=== PATIENT | female | born 1965 | race Caucasian/White ===

== ENCOUNTER 2017-09-04 19:43 | Emergency (ER) | payer OTHER ==
--- NOTE | 2017-09-04 19:47 | PDOC ---
History of Present Illness - General History Source: Patient Exam Limitations: No Limitations - History of Present Illness Initial Comments: 09/04/17 20:57 The patient is a 52 year old female with history of hypertension, hyperlipidemia , anxiety, who presents to the ED complaining of an animal bite this evening prior to arrival. She states she got out of her car in front of her home when she felt a bite to her left lower extremity. She reports she saw a large- coyote like creature that was not provoked and was aggressive. She denies any other injury. <Louise Eng - Last Filed: 09/04/17 20:57> <Sheree Sky - Last Filed: 09/05/17 04:10> - General Chief Complaint: Bite Stated Complaint: COYOTE BITE Time Seen by Provider: 09/04/17 19:45 Past History <Louise Eng - Last Filed: 09/04/17 20:57> <Sheree Sky - Last Filed: 09/05/17 04:10> - Past Medical History Allergies/Adverse Reactions: Allergies Allergy/AdvReac Type Severity Reaction Status Date / Time No Known Allergies Allergy Verified 09/04/17 19:54 Home Medications: Ambulatory Orders Amox-Tr/K Cl [Augmentin - 875Mg Tablet] 1 tab PO BID #10 tablet 09/04/17 Atorvastatin Ca [Lipitor] 40 mg PO HS 09/04/17 Clonazepam [Klonopin] 1 mg PO PRN PRN 09/04/17 Lamotrigine [LaMICtal -] 300 mg PO ONCE 09/04/17 Metformin HCl [Metformin HCl ER] 1,000 mg PO HS 09/04/17 Risperidone [Risperdal] 1 mg PO DAILY 09/04/17 Triamterene/Hydrochlorothiazid [Triamterene-Hctz 37.5-25 mg Tb] 37.5 mg PO DAILY 09/04/17 Venlafaxine HCl ER [Effexor Xr -] 37.5 mg PO DAILY 09/04/17 Venlafaxine HCl ER [Effexor Xr -] 150 mg PO DAILY 09/04/17 Review of Systems - Review of Systems Able to Perform ROS?: Yes Comments:: 09/04/17 21:00 ROS is as per HPI and otherwise negative. All Other Systems: Reviewed and Negative <Louise Eng - Last Filed: 09/04/17 20:57> *Physical Exam - Vital Signs Last Vital Signs Temp Pulse Resp BP Pulse Ox 98.5 F 74 20 169/93 100 09/04/17 19:46 09/04/17 19:46 09/04/17 19:46 09/04/17 19:46 09/04/17 19:46 - Physical Exam Comments: 09/04/17 20:57 GENERAL: Awake, alert, and fully oriented, in no acute distress HEAD: No signs of trauma EYES: PERRLA, EOMI, sclera anicteric, conjunctiva clear ENT: Auricles normal inspection, hearing grossly normal, nares patent, oropharynx clear without exudates. Moist mucosa NECK: Normal ROM, supple, no lymphadenopathy, JVD, or masses LUNGS: Breath sounds equal, clear to auscultation bilaterally. No wheezes, and no crackles HEART: Regular rate and rhythm, normal S1 and S2, no murmurs, rubs or gallops ABDOMEN: Soft, nontender, normoactive bowel sounds. No guarding, no rebound. No masses EXTREMITIES: Normal range of motion, no edema. No clubbing or cyanosis. No cords, erythema, or tenderness NEUROLOGICAL: Cranial nerves II through XII grossly intact. Normal speech, normal gait SKIN: 4 cm v shaped superficial wound, not bleeding, of proximal lateral left lower extremity with moderate surrounding edema and ecchymosis with mild tenderness. Warm, dry. No other lesions noted. <Louise Eng - Last Filed: 09/04/17 20:57> Progress Note - Progress Note Progress Note: Documentation has been prepared under my direction and personally reviewed by me in its entirety. I attest that this documented accurately reflects all work, treatment, procedures and medical decision making performed by me. <Sheree Sky - Last Filed: 09/05/17 04:10> Medical Decision Making - Medical Decision Making As noted above, this 52-year-old female with history of diabetes presents with left thigh bite after unprovoked attack by presumed coyote. Patient was removing water bottles out of her automobile trunk when animal suddenly appeared and bit through her left pant leg. She describes the animal as large coyote (patient sees smaller coyotes in her development). Patient swung at the animal but it continued to attempt to re-attack her. She was able to escape into her car without further injury and drove here. Exam as noted: Superficial skin break of the anterior proximal left thigh in the shape of a bite wound (rough "V" shaped). Case discussed with Department of Health and information forms faxed to them. Because of the nature of this unprovoked attack by an animal that was likely rabid, rabies prophylaxis was administered. The wound was cleansed with Hibiclens/ethanol solution. 12.4 mL of HRIG was infiltrated into the wound. Bacitracin and sterile dressing applied to wound. Boostrix and rabies immunization was administered by nursing staff into right and left deltoid muscles. Augmentin 875/125 twice a day prescribed for 5 days. First dose given here in the emergency room. Patient will be contacted by [facility] tomorrow and plan for remainder of the rabies immunization schedule will be confirmed. Meanwhile, patient will return here or see her doctor if she notes increasing pain/redness or swelling in the wound <Sheree Sky - Last Filed: 09/05/17 04:10> *DC/Admit/Observation/Transfer - Attestations Scribe Attestion: 09/04/17 21:01 Documentation prepared by Louise Eng, acting as durable medical equipment repairer for Sheree Sky MD. <Louise Eng - Last Filed: 09/04/17 20:57> <Sheree Sky - Last Filed: 09/05/17 04:10> Diagnosis at time of Disposition: Animal bite of left thigh Qualifiers: Encounter type: initial encounter Qualified Code(s): S71.152A - Open bite, left thigh, initial encounter - Discharge Dispostion Disposition: HOME Condition at time of disposition: Stable - Prescriptions Prescriptions: Amox-Tr/K Cl [Augmentin - 875Mg Tablet] 1 tab PO BID #10 tablet - Patient Instructions Printed Discharge Instructions: How to Care for a Wild Animal Bite Additional Instructions: Continue rabies prophylaxis as per Department of Health Augmentin 875/125 twice a day for 5 days; take with food Gauze/bacitracin to wound for the first 48 hours; can leave open after that Return here or see your doctor if wound becomes more painful/red/swollen or you develop fever
[2017-09-04 20:01] VITALS: BP 169/93; PULSE 74; TEMP 98.5; BMI 32.8
[2017-09-04] MEDS ORDERED: DIPHTH,PERTUSS(ACELL),TET 0.5 ML DISP.SYRIN IM ONE (22:44)
[2017-09-04] MEDS ORDERED: AMOX TR/POT CLAV 875MG/125MG TABLETS (FP) PO ONE (22:45)
[2017-09-04] MEDS ORDERED: AMOX TR/POT CLAV 875MG/125MG TABLETS (FP) ONE (22:51)
== END 2017-09-04 23:05 | disposition home or self-care (01) ==
LOC: FER 19:43
PROC: 3E0234Z Introduction of Serum, Toxoid and Vaccine into Muscle, Percutaneous Approach (ICD-10-PCS; principal; 2017-09-04)
DX: S71.152A Open bite, left thigh, initial encounter (principal); W64.XXXA Exposure to other animate mechanical forces, initial encounter; Y93.89 Activity, other specified; Y92.89 Other specified places as the place of occurrence of the external cause; I10 Essential (primary) hypertension; E78.5 Hyperlipidemia, unspecified; F41.9 Anxiety disorder, unspecified
CPT/HCPCS: 90715; 99283-25

== ENCOUNTER 2017-09-07 08:58 | Emergency (ER) | payer OTHER ==
[2017-09-07] MEDS ORDERED: RABIES VACCINE (PCEC)/PF 2.5 UNIT/VIAL IM ONE (09:17)
--- NOTE | 2017-09-07 09:22 | PDOC ---
History of Present Illness - General Chief Complaint: Revisit,Rabies Injection Stated Complaint: rabies injection Time Seen by Provider: 09/07/17 09:09 - History of Present Illness Initial Comments: 09/07/17 09:19 The patient is a 52 year old female who presents for repeat rabies vaccination following a coyote bite. The patient reports that she sustained a coyote bite to her left thigh 3 days ago and has returned to the ED to receive her second dose of the rabies vaccine. She received the rabies immunogolbin and rabies vaccination with her visit 3 days ago and was also started on augmentin. Since the bite 3 days ago, she reports improved pain and swelling to the bite area and denies any redness or warmth to the area. She denies fevers, chills, SOB, chest pain, abdominal pain, nausea, vomiting, numbness, weakness, or changes to urination or bowel movements. Past History - Past Medical History Allergies/Adverse Reactions: Allergies Allergy/AdvReac Type Severity Reaction Status Date / Time No Known Allergies Allergy Verified 09/07/17 09:00 Home Medications: Ambulatory Orders Amox-Tr/K Cl [Augmentin - 875Mg Tablet] 1 tab PO BID #10 tablet 09/04/17 Atorvastatin Ca [Lipitor] 40 mg PO HS 09/04/17 Clonazepam [Klonopin] 1 mg PO PRN PRN 09/04/17 Lamotrigine [LaMICtal -] 300 mg PO ONCE 09/04/17 Metformin HCl [Metformin HCl ER] 1,000 mg PO HS 09/04/17 Risperidone [Risperdal] 1 mg PO DAILY 09/04/17 Triamterene/Hydrochlorothiazid [Triamterene-Hctz 37.5-25 mg Tb] 37.5 mg PO DAILY 09/04/17 Venlafaxine HCl ER [Effexor Xr -] 37.5 mg PO DAILY 09/04/17 Venlafaxine HCl ER [Effexor Xr -] 150 mg PO DAILY 09/04/17 COPD: No Diabetes: Yes HTN: Yes Hypercholesterolemia: Yes Psychiatric Problems: Yes - Immunization History Immunization Up to Date: Yes - Suicide/Smoking/Psychosocial Hx Smoking History: Current every day smoker Have you smoked in the past 12 months: Yes Number of Cigarettes Smoked Daily: 15 Information on smoking cessation initiated: Yes 'Breaking Loose' booklet given: 09/04/17 Hx Alcohol Use: No Drug/Substance Use Hx: No Substance Use Type: None Review of Systems - Review of Systems Comments:: 09/07/17 09:23 Constitutional: No fevers, chills, fatigue, malaise HEENT: No Rhinorrhea, nasal congestion, visual changes Cardiovascular: No chest pain, syncope, palpitations, lightheadedness Respiratory: No Cough, SOB, Hemoptysis, Gastrointestinal: No Abdominal pain, Nausea, Vomiting, Constipation, Diarrhea, Melena Genitourinary: No Dysuria, Frequency, Urgency, Hesitancy, Hematuria, Flank pain Musculoskeletal: No Myalgia, arthralgia Skin: Bruising to the left thigh around the bite site. No rashes, itching, pallor Neurologic: No Headache, Dizziness, Numbness, Weakness, or Tingling Psychiatric: No Hallucinations. No SI or HI *Physical Exam - Vital Signs Last Vital Signs Temp Pulse Resp BP Pulse Ox 99.9 F H 103 H 20 142/94 98 09/07/17 09:00 09/07/17 09:00 09/07/17 09:00 09/07/17 09:00 09/07/17 09:00 - Physical Exam Comments: 09/07/17 09:24 General Appearance: Nourished. No Apparent Distress HEENT: No Pharyngeal Erythema, Tonsillar Exudate, Tonsillar Erythema Neck: No Cervical Lymphadenopathy Respiratory/Chest: Lungs Clear, Normal Breath Sounds. No Crackles, Rales, Rhonchi, Wheezing Cardiovascular: Regular Rhythm, Regular Rate. No Murmur, Gallops, Rubs Gastrointestinal/Abdominal: Normal Bowel Sounds, Soft. No Guarding, Rebound, Tenderness Musculoskeletal: No CVA Tenderness Extremity: Two well healing teeth wounds to the left lateral thigh with surround bruising. No erythema, or warmth to the bite site. Normal Capillary Refill Integumentary: Normal Color, Dry, Warm Neurologic: Fully Oriented, Alert, Normal Mood/Affect, Normal Response, Medical Decision Making - Medical Decision Making 09/07/17 09:25 The patient is a 52 year old female who presents for repeat rabies vaccination following a coyote bite. The patient appears clinically well on exam and the bite site shows no signs of infection at this time. The patient received rabies immunization and immunoglobin with her first visit 3 days ago. We will treat the patient with the second dose of the rabies vaccination here in the ER. We have discussed that the patient needs to follow up either in the ER or at her primary care providers office for her third dose of the rabies vaccination on 09/11/17 for her day 7 vaccination. We discussed return precautions with the patient including worsening pain, redness, or discharge. We are comfortable discharging the patient home with primary care provider follow up. *DC/Admit/Observation/Transfer Diagnosis at time of Disposition: Animal bite of left thigh Qualifiers: Encounter type: subsequent encounter Qualified Code(s): S71.152D - Open bite, left thigh, subsequent encounter - Discharge Dispostion Disposition: HOME Condition at time of disposition: Good Admit: No - Referrals - Patient Instructions Printed Discharge Instructions: DI for Rabies Vaccine, DI for Animal Bites Additional Instructions: Please return to the ER if you experience concerning or worsening symptoms including worsening fever, redness, discharge, or warmth. Your temperature was elevated here today in the ER. Please monitor your temperature at home twice a day and should your temperature rise above 100.4 please seek medical attention right away. Please return to the ER on 09/11/17 for your third dose of the rabies vaccination. - Post Discharge Activity
[2017-09-07 09:25] VITALS: BMI 32.8
--- NOTE | 2017-09-07 09:29 | PDOC ---
Attending Attestation - Resident Resident Name: Michael Jarrell - ED Attending Attestation I have performed the following: I have examined & evaluated the patient, The case was reviewed & discussed with the resident, I agree w/resident's findings & plan - HPI HPI: 09/07/17 09:27 Patient was bitten by a probable rabid coyote. She is here for her day 3 rabies shot. The wound is on her lateral thigh. The wound has been black and blue, but no redness or discharge. Patient received human rabies immune globulin and her first shot on the day of her initial visit. - Physicial Exam PE: 09/07/17 09:28 Lateral thigh with ecchymosis and healing bite perdomo. No erythema. No discharge. Wound is healing well without signs of infection. - Medical Decision Making 09/07/17 09:28 Impression: Follow-up for coyote bite, high risk for rabies. Status post human rabies immune globulin and vaccine #1 given 3 days ago. Here for vaccine #2. Patient has the full scheduled to complete the series of injections.
[2017-09-07 09:40] VITALS: BP 132/89; PULSE 96; TEMP 100.1
== END 2017-09-07 09:44 | disposition home or self-care (01) ==
LOC: FER 08:58
PROC: 3E0234Z Introduction of Serum, Toxoid and Vaccine into Muscle, Percutaneous Approach (ICD-10-PCS; principal; 2017-09-07)
DX: S71.152D Open bite, left thigh, subsequent encounter (principal); Z20.3 Contact with and (suspected) exposure to rabies; Z23 Encounter for immunization; I10 Essential (primary) hypertension; E78.00 Pure hypercholesterolemia, unspecified; F99 Mental disorder, not otherwise specified; E11.9 Type 2 diabetes mellitus without complications; F17.210 Nicotine dependence, cigarettes, uncomplicated
CPT/HCPCS: 90675; 99282-25

== ENCOUNTER 2017-09-10 17:35 | Emergency (ER) | payer OTHER ==
[2017-09-10 17:51] VITALS: BP 141/95; PULSE 75; TEMP 98.5; BMI 32.8
[2017-09-10] MEDS ORDERED: RABIES IMMUNE GLOBULIN 300 UNITS/2 ML VIAL IM ONE (18:22)
[2017-09-10] MEDS ORDERED: RABIES VACCINE (PCEC)/PF 2.5 UNIT/VIAL IM ONE (18:27)
--- NOTE | 2017-09-10 18:29 | PDOC ---
History of Present Illness <Zaki Monaco - Last Filed: 09/10/17 18:22> - General History Source: Patient, Old Records Exam Limitations: No Limitations - History of Present Illness Initial Comments: 09/10/17 18:36 The patient is a 52 year old female, with a significant past medical history of HTN, HLD and diabetes, who presents to the emergency department to receive her scheduled rabies vaccine. The patient was bite on 09/04/17 by a wild coyote with a rabies diagnosis on her left thigh. The patient had previously came back for her rabies vaccine on 09/06/2017. The patient denies chest pain, shortness of breath, headache and dizziness. Denies fever, chills, nausea, vomit, diarrhea and constipation. Denies dysuria, frequency, urgency and hematuria. Allergies: None Past surgical history: None reported Social history: Cigarette use (15 daily). No alcohol or drug use reported <Calvin Han - Last Filed: 09/10/17 18:38> - General Chief Complaint: Revisit,Rabies Injection Stated Complaint: RABIES VACCINE Time Seen by Provider: 09/10/17 17:41 Past History - Past Medical History COPD: No Diabetes: Yes HTN: Yes Hypercholesterolemia: Yes Psychiatric Problems: Yes - Immunization History Immunization Up to Date: Yes - Suicide/Smoking/Psychosocial Hx Smoking History: Current every day smoker Have you smoked in the past 12 months: Yes Number of Cigarettes Smoked Daily: 15 Information on smoking cessation initiated: Yes 'Breaking Loose' booklet given: 09/10/17 Hx Alcohol Use: No Drug/Substance Use Hx: No Substance Use Type: None <Zaki Monaco - Last Filed: 09/10/17 18:22> <Calvin Han - Last Filed: 09/10/17 18:38> - Past Medical History Allergies/Adverse Reactions: Allergies Allergy/AdvReac Type Severity Reaction Status Date / Time No Known Allergies Allergy Verified 09/10/17 17:47 Home Medications: Ambulatory Orders Amox-Tr/K Cl [Augmentin - 875Mg Tablet] 1 tab PO BID #10 tablet 09/04/17 Atorvastatin Ca [Lipitor] 40 mg PO HS 09/04/17 Clonazepam [Klonopin] 1 mg PO PRN PRN 09/04/17 Lamotrigine [LaMICtal -] 300 mg PO ONCE 09/04/17 Metformin HCl [Metformin HCl ER] 1,000 mg PO HS 09/04/17 Risperidone [Risperdal] 1 mg PO DAILY 09/04/17 Triamterene/Hydrochlorothiazid [Triamterene-Hctz 37.5-25 mg Tb] 37.5 mg PO DAILY 09/04/17 Venlafaxine HCl ER [Effexor Xr -] 37.5 mg PO DAILY 09/04/17 Venlafaxine HCl ER [Effexor Xr -] 150 mg PO DAILY 09/04/17 Review of Systems - Review of Systems Able to Perform ROS?: Yes Comments:: 09/10/17 18:37 GENERAL/CONSTITUTIONAL: No fever or chills. No weakness. HEAD, EYES, EARS, NOSE AND THROAT: No change in vision. No ear pain or discharge. No sore throat. CARDIOVASCULAR: No chest pain or shortness of breath RESPIRATORY: No cough, wheezing, or hemoptysis. GASTROINTESTINAL: No nausea, vomiting, diarrhea or constipation. GENITOURINARY: No dysuria, frequency, or change in urination. MUSCULOSKELETAL: No joint or muscle swelling or pain. No neck or back pain. SKIN: (+) Bite vijay on left thigh. No rash NEUROLOGIC: No headache, vertigo, loss of consciousness, or change in strength/ sensation. ENDOCRINE: No increased thirst. No abnormal weight change HEMATOLOGIC/LYMPHATIC: No anemia, easy bleeding, or history of blood clots. ALLERGIC/IMMUNOLOGIC: No hives or skin allergy. <Calvin Han - Last Filed: 09/10/17 18:38> *Physical Exam - Vital Signs Last Vital Signs Temp Pulse Resp BP Pulse Ox 98.5 F 75 18 141/95 98 09/10/17 17:35 09/10/17 17:35 09/10/17 17:35 09/10/17 17:35 09/10/17 17:35 <Zaki Monaco - Last Filed: 09/10/17 18:22> - Vital Signs Last Vital Signs Temp Pulse Resp BP Pulse Ox 98.5 F 75 18 141/95 98 09/10/17 17:35 09/10/17 17:35 09/10/17 17:35 09/10/17 17:35 09/10/17 17:35 - Physical Exam Comments: 09/10/17 18:38 GENERAL: Awake, alert, and fully oriented, in no acute distress HEAD: No signs of trauma, normocephalic, atraumatic EYES: PERRLA, EOMI, sclera anicteric, conjunctiva clear ENT: Auricles normal inspection, hearing grossly normal, nares patent, oropharynx clear without exudates. Moist mucosa NECK: Normal ROM, supple, no lymphadenopathy, JVD, or masses LUNGS: No distress, speaks full sentences, clear to auscultation bilaterally HEART: Regular rate and rhythm, normal S1 and S2, no murmurs, rubs or gallops, peripheral pulses normal and equal bilaterally. ABDOMEN: Soft, nontender, normoactive bowel sounds. No guarding, no rebound. No masses EXTREMITIES : Normal inspection, Normal range of motion, no edema. No clubbing or cyanosis. NEUROLOGICAL: Cranial nerves II through XII grossly intact. Normal speech, normal gait, no focal sensorimotor deficits SKIN: (+) Bite vijay on her left thigh. Warm, Dry, normal turgor, no rashes or lesions noted <Calvin Han - Last Filed: 09/10/17 18:38> ED Treatment Course - Medications Given in the ED: ED Medications Discontinued Medications Generic Name Dose Route Start Last Admin Trade Name Freq PRN Reason Stop Dose Admin Rabies Immune Globulin 12.3 ml 09/10/17 18:22 09/10/17 18:28 Hyperrab S/D - 0.1333 ml/kg (12.3 ml) 09/10/17 18:23 Not Given IM ONCE ONE Protocol Rabies Vaccine 2.5 unit 09/10/17 18:27 09/10/17 18:30 Rabavert Rabies Vaccine IM 09/10/17 18:28 2.5 unit NOW ONE Administration <Calvin Han - Last Filed: 09/10/17 18:38> *DC/Admit/Observation/Transfer - Discharge Dispostion Admit: No <Zaki Monaco - Last Filed: 09/10/17 18:22> - Attestations Scribe Attestion: 09/10/17 18:38 Documentation prepared by Calvin Han, acting as medical center representative for Zaki Monaco MD <Calvin Han - Last Filed: 09/10/17 18:38> Diagnosis at time of Disposition: Rabies exposure - Discharge Dispostion Disposition: HOME Condition at time of disposition: Stable - Patient Instructions Printed Discharge Instructions: DI for Rabies Vaccine Additional Instructions: Follow up as instructed
== END 2017-09-10 18:35 | disposition home or self-care (01) ==
LOC: FER 17:35
PROC: 3E0234Z Introduction of Serum, Toxoid and Vaccine into Muscle, Percutaneous Approach (ICD-10-PCS; principal; 2017-09-10)
DX: Z20.3 Contact with and (suspected) exposure to rabies (principal); Z23 Encounter for immunization; I10 Essential (primary) hypertension; E78.00 Pure hypercholesterolemia, unspecified; E11.9 Type 2 diabetes mellitus without complications; F17.210 Nicotine dependence, cigarettes, uncomplicated
CPT/HCPCS: 90675; 99282-25

== ENCOUNTER 2017-10-07 13:08 | Emergency (ER) | payer OTHER ==
[2017-10-07 13:15] VITALS: BP 144/91; PULSE 83; TEMP 98.4; BMI 33.2
[2017-10-07] MEDS ORDERED: CEPHALEXIN MONOHYDRATE 500 MG CAPSULE (UD) PO ONE (13:25)
[2017-10-07] MEDS ORDERED: RABIES VACCINE (PCEC)/PF 2.5 UNIT/VIAL IM ONE (13:25)
--- NOTE | 2017-10-07 13:28 | PDOC ---
History of Present Illness - General Chief Complaint: Revisit,Rabies Injection Stated Complaint: RABIES VACCINE Time Seen by Provider: 10/07/17 13:11 - History of Present Illness Initial Comments: 10/07/17 13:26 52 F with h/o HTN, HLD, DM presenting for 5th and final rabies vaccine. Pt was bitten by coyote on 09/04, received rabies IgG and vaccine. Completed 10 day course of augmentin. Pt missed vaccine on 09/18 but had vaccine on 09/23. Was instructed to return today for final vaccination. Pt denies F/C. No pain, swelling, redness at site of injury. Pt also notes that she has a finger infection of her L thumb. States that it began to get swollen and painful 3 days ago. Denies any purulent drainage, denies difficulty ranging her thumb. Past History - Past Medical History Allergies/Adverse Reactions: Allergies Allergy/AdvReac Type Severity Reaction Status Date / Time No Known Allergies Allergy Verified 10/07/17 13:08 Home Medications: Ambulatory Orders Atorvastatin Ca [Lipitor] 40 mg PO HS 09/04/17 Clonazepam [Klonopin] 1 mg PO PRN PRN 09/04/17 Lamotrigine [LaMICtal -] 300 mg PO ONCE 09/04/17 Metformin HCl [Metformin HCl ER] 1,000 mg PO HS 09/04/17 Risperidone [Risperdal] 1 mg PO DAILY 09/04/17 Triamterene/Hydrochlorothiazid [Triamterene-Hctz 37.5-25 mg Tb] 37.5 mg PO DAILY 09/04/17 Venlafaxine HCl ER [Effexor Xr -] 37.5 mg PO DAILY 09/04/17 Venlafaxine HCl ER [Effexor Xr -] 150 mg PO DAILY 09/04/17 COPD: No Diabetes: Yes HTN: Yes Hypercholesterolemia: Yes Psychiatric Problems: Yes - Immunization History Immunization Up to Date: Yes - Suicide/Smoking/Psychosocial Hx Smoking History: Current every day smoker Have you smoked in the past 12 months: Yes Number of Cigarettes Smoked Daily: 15 Information on smoking cessation initiated: Yes 'Breaking Loose' booklet given: 10/07/17 Hx Alcohol Use: No Drug/Substance Use Hx: No Substance Use Type: None Review of Systems - Review of Systems Comments:: 10/07/17 13:31 "GENERAL/CONSTITUTIONAL: No fever or chills. No weakness. HEAD, EYES, EARS, NOSE AND THROAT: No change in vision. No ear pain or discharge. No sore throat. CARDIOVASCULAR: No chest pain or shortness of breath. RESPIRATORY: No cough, wheezing, or hemoptysis. GASTROINTESTINAL: No nausea, vomiting, diarrhea or constipation. GENITOURINARY: No dysuria, frequency, or change in urination. MUSCULOSKELETAL: + L thumb pain and swelling SKIN: No rash NEUROLOGIC: No headache, vertigo, loss of consciousness, or change in strength/ sensation. ENDOCRINE: No increased thirst. No abnormal weight change. HEMATOLOGIC/LYMPHATIC: No anemia, easy bleeding, or history of blood clots. ALLERGIC/IMMUNOLOGIC: No hives or skin allergy. " *Physical Exam - Vital Signs Last Vital Signs Temp Pulse Resp BP Pulse Ox 98.4 F 83 18 144/91 98 10/07/17 13:08 10/07/17 13:08 10/07/17 13:08 10/07/17 13:08 10/07/17 13:08 - Physical Exam Comments: 10/07/17 13:32 "GENERAL: Awake, alert, and fully oriented, in no acute distress HEAD: No signs of trauma EYES: PERRLA, EOMI, sclera anicteric, conjunctiva clear ENT: Auricles normal inspection, hearing grossly normal, nares patent, oropharynx clear without exudates. Moist mucosa NECK: Nontender, no stepoffs, Normal ROM, supple, no lymphadenopathy, JVD, or masses LUNGS: Breath sounds equal, clear to auscultation bilaterally. No wheezes, and no crackles HEART: Regular rate and rhythm, normal S1 and S2, no murmurs, rubs or gallops ABDOMEN: Soft, nontender, normoactive bowel sounds. No guarding, no rebound. No masses EXTREMITIES: + L 1st digit with paronychia at lateral edge of fingernail, no abscess, Normal range of motion, No clubbing or cyanosis. No cords, erythema, or tenderness NEUROLOGICAL: Cranial nerves II through XII intact. 5/5 strength and sensation in all extremities, Normal speech, normal gait, normal cerebellar function SKIN: Warm, Dry, normal turgor, no rashes or lesions noted. " Medical Decision Making - Medical Decision Making 10/07/17 13:33 52 F here for final rabies vaccination. Also with L thumb paronychia - no abscess to drain at this time. - Rabies vaccination - Keflex for paronychia - F/u PMD. Pt is well appearing, with normal vitals. Clinically stable for DC at this time. I discussed the physical exam findings, ancillary test results and final diagnoses with the patient. I answered all of the patient's questions. The patient was satisfied with the care received and felt comfortable with the discharge plan and treatment plan. The patient agrees to follow up with the primary care physician within 24-72 hours. *DC/Admit/Observation/Transfer Diagnosis at time of Disposition: Paronychia, Rabies exposure - Discharge Dispostion Disposition: HOME Condition at time of disposition: Stable - Referrals - Patient Instructions Printed Discharge Instructions: DI for Rabies Vaccine, DI for Paronychia Additional Instructions: Follow up with your primary doctor to have your rabies titers checked. Take the antibiotics as prescribed to treat your finger infection. Use warm compresses or warm water soaks as well to help it drain. If you experience worsening pain, swelling, redness, fevers, or any other concerning symptoms, return to the ER immediately. - Post Discharge Activity - Attestations Physician Attestion: 10/07/17 13:35 I, Dr. Kingston Yeh MD, attest that this document has been prepared under my direction and personally reviewed by me in its entirety. I further attest, that it accurately reflects all work, treatment, procedures and medical decision -making performed by me.
[2017-10-07] MEDS ORDERED: CEPHALEXIN MONOHYDRATE 500 MG CAPSULE (UD) ONE (14:10)
== END 2017-10-07 14:15 | disposition home or self-care (01) ==
LOC: FER 13:08
PROC: 3E0234Z Introduction of Serum, Toxoid and Vaccine into Muscle, Percutaneous Approach (ICD-10-PCS; principal; 2017-10-07)
DX: Z23 Encounter for immunization (principal); Z20.3 Contact with and (suspected) exposure to rabies
CPT/HCPCS: 90675; 99281-25